=== PATIENT | female | born 1940 | race Caucasian/White ===

== ENCOUNTER → 2021-02-21 | Outpatient (CLI) | payer MEDICARE, OTHER ==
--- NOTE | 2021-02-21 15:10 | REP ---
INDICATION: UNSPECIFIED SPRAIN OF LEFT HIP, INITIAL ENCOUNTER. COMPARISON: None TECHNIQUE: AP frog-lateral views FINDINGS: There is mild asymmetric hip joint space narrowing with mild femoral head marginal osteophytosis. There is buttressing. There is no acute fracture, dislocation, or subluxation. Degenerative changes are seen involving the left sacroiliac joint and imaged portion of the spine. IMPRESSION: Chronic changes as described above. <Electronically signed by Reilly Cannon > 02/21/21 [id number]
== END ==
LOC: M RAD 14:15
PROVIDERS: ATTEND Physician Assistant
DX: S73.102A Unspecified sprain of left hip, initial encounter (principal); M25.752 Osteophyte, left hip; X58.XXXA Exposure to other specified factors, initial encounter; Y92.9 Unspecified place or not applicable; Y99.9 Unspecified external cause status; Y93.9 Activity, unspecified